=== PATIENT | male | born 1980 | race Caucasian/White ===

== ENCOUNTER → 2020-11-01 09:39 | Outpatient (BNVA) | payer SELFPAY | PROVIDERS: Visit Provider Surgery | DX: Z20.822 Contact with and (suspected) exposure to COVID-19 (principal); K80.20 Calculus of gallbladder without cholecystitis without obstruction | CPT/HCPCS: 87635 ==

== ENCOUNTER 2020-11-08 05:38 | Day surgery (SDC) | payer SELFPAY ==
[2020-11-08] VITALS (12 sets, daily range): BP systolic 121–157; BP diastolic 78–109; PULSE 60–84; RESP 12–76; TEMP 36.1–36.9; O2SAT 91–96
[2020-11-08] MEDS: sodium chloride 0.9% 1,000 ML 30 ML IV (06:30)
--- NOTE | 2020-11-08 06:37 | ANES.PREANE2 ---
Pre-Anesthetic Assessment Pre-Anesthetic Assessment: Height/Weight: Height 1.65 m Temp Pulse Resp BP Pulse Ox 98.4 F 84 18 157/109 96 11/08/20 06:18 11/08/20 06:18 11/08/20 06:18 11/08/20 06:18 11/08/20 06:18 Preop Diagnosis: Cholelithiasis Proposed Procedure: Operation Date: 11/08/20 07:00 Proposed Procedures p Laparoscopic Cholecystectomy 24490 K80.20(Not Applicable) - Richmond Sheth MD Familial anesthetic complications: none Was Beta Paresh taken within 24 hours: N/A Was Clonidine taken within 24 hours: N/A Last intake: Intake Last Liquid Date 11/07/20 Last Liquid Time 22:30 Last Solid Date 11/07/20 Last Solid Time 19:00 Social: Social History: No alcohol and No tobacco Comment: former smoker, currently vapes Exam: Pre-Anes Outpt Exam: alert, oriented x 3, clear to auscultation bilaterally and regular rate & rhythm Airway: Cervical ROM: WNL MP: 4 Dentition: False Metabolic: Metabolic: Morbid obesity Anesthetic Plan: ASA status: 2 Anesthesia: General Risk of > 500 ml blood loss (7ml/kg in children): No PFSH Anesthesia PFSH: Medical History (Updated 09/08/20 @ 10:50 by Richmond Sheth MD) Cholelithiasis GERD (gastroesophageal reflux disease) History of spleen injury Surgical History (Updated 09/08/20 @ 10:49 by Richmond Sheth MD) H/O exploratory laparotomy Family History (Updated 09/08/20 @ 10:45 by Cassidy Baxter LPN) Father Cancer CAD (coronary artery disease) Social History (Updated 09/08/20 @ 10:46 by Cassidy Baxter LPN) Smoking and tobacco status: former smoker Alcohol intake: never Marital status: Single Number of children: 4 Current occupational status: employed Data Anesthesia Cardiac Studies: No Data to Display
--- NOTE | 2020-11-08 06:56 | W.PM.OPSFHP ---
Same Day Surgery H&P Indication for Procedure/HPI DATE OF PROCEDURE: November 08, 2020 CHIEF COMPLAINT/INDICATIONFOR SURGICAL PROCEDURE: cholelithiasis/lap kosta PREOP DIAGNOSIS: Cholelithiasis PLANNED PROCEDRUE: Operation Date: 11/08/20 07:00 Proposed Procedures p Laparoscopic Cholecystectomy 57671 K80.20(Not Applicable) - Richmond Sheth MD Medications/Allergies* Home Medications Medication Instructions Recorded Confirmed Type famotidine 20 mg tablet 20 mg PO DAILY 09/08/20 11/07/20 History Allergies/Adverse Reactions Allergy/AdvReac Type Severity Reaction Status Date / Time No Known Allergies Allergy Verified 11/08/20 06:21 Pertinent History/Comorbid Conditions* Medical History (Updated 09/08/20 @ 10:50 by Richmond Sheth MD) Cholelithiasis GERD (gastroesophageal reflux disease) History of spleen injury Surgical History (Updated 09/08/20 @ 10:49 by Richmond Sheth MD) H/O exploratory laparotomy Family History (Updated 09/08/20 @ 10:45 by Cassidy Baxter LPN) CAD (coronary artery disease) Father Cancer Father Social History Smoking and tobacco status: former smoker Alcohol intake: never Marital status: Single Number of children: 4 Current occupational status: employed Pertinent Exam Findings alert, oriented x 3, regular rate & rhythm and operative site marked Recommendations Surgery/Procedure today Coding Level of Care Code Acute [employer] for Marti Rapp
--- NOTE | 2020-11-08 07:29 | PC.NURSE ---
spoke with patient's to let her know we have started the procedure. Bandar Solis
[2020-11-08] MEDS: fentaNYL 50 mcg/mL INJ 2mL IVP ×2 (09:06→09:11)
[2020-11-08] MEDS: ondansetron 2 mg/ML SDV 2 mL 4 MG IVP (09:06)
[2020-11-08] MEDS: HYDROcodone-acetaminophen 5-325 mg Tablet 1 TAB PO (11:13)
--- NOTE | 2020-11-08 18:04 | ANE.PACU2 ---
Inpatient post-anesthesia follow up: Airway intact: Yes Vital signs: Temperature 97.2 F Pulse Rate 76 Respiratory Rate 76 Blood Pressure 135/106 Pulse Oximetry 93 Oxygen Delivery Me thod Room Air Oxygen Flow Rate 8 Fraction of Inspir ed Oxygen Hydration adequate: Yes Nausea and vomiting: No Pain level: 2 Mental status: Baseline
--- NOTE | 2020-11-08 18:06 | ANE.PACU2 ---
Inpatient post-anesthesia follow up: Airway intact: Yes Vital signs: Temperature 97.2 F Pulse Rate 76 Respiratory Rate 76 Blood Pressure 135/106 Pulse Oximetry 93 Oxygen Delivery Me thod Room Air Oxygen Flow Rate 8 Fraction of Inspir ed Oxygen Hydration adequate: Yes Nausea and vomiting: No Pain level: 3 Mental status: Baseline
--- NOTE | 2020-11-09 15:02 | PM.OP ---
Operative Report Date of procedure: 11.08.2020 Pre-op Diagnosis: Symptomatic cholelithiasis Post-op Diagnosis: 1. Cholelithiasis 2. Adhesions from prior exploratory laparotomy Procedure Done: Laparoscopic cholecystectomy Specimens removed/disposition: Gallbladder Surgeon: Richmond Sheth Anesthesia: General Estimated blood loss (mL): 150 Condition: stable Disposition: PACU Procedure: The patient was taken to the operating room and was intubated under general anesthesia. After the antibiotic had been administered, the abdomen was prepped and draped in a sterile manner. Using a #15 blade, a 1 centimeter right subcostal incision is made in the midclavicular line and using an open Fermin technique the peritoneal cavity was entered. A 10 millimeter port was placed and 15 millimeters of pneumoperitoneum was created. A 10 millimeter, 30 degrees scope was then introduced. There were adhesions in the midline up to the epigastrium. Three 5 millimeter ports were placed in the epigastric, and the anterior axillary line two fingerbreadths below the costal margin on the right side and in midclavicular line just under the umbilicus under the direct visualization. Ratcheted forceps were introduced into the lateral most port and was used to retract the fundus of the gallbladder cephalad and using forceps the infundibulum of the gallbladder was retracted laterally. Using L-hook cautery the peritoneum overlying the Calot's triangle was opened medially and laterally until the cystic duct and the cystic artery were skeletonized. There was brisk bleeding during dissection of the cystic duct resulting in blood loss but it was eventually controlled with clips. Dissection was carried along the body of the gallbladder and after ensuring critical view of safety, 4 clips applied on the cystic duct and 3 clips applied on the cystic artery and cut leaving, 3 clips on the remaining portion of the duct and 2 clips on the remaining portion of the artery. The rest of the gallbladder was dissected off the liver using L-hook cautery. There was no bleeding or bile leaking noted from the gallbladder fossa and the clips appeared to be in place. An EndoCatch bag was introduced to remove the gallbladder. All the ports were removed under direct visualization and there was no bleeding noted from the port sites. The fascia of the 10 mm port site was closed using [id number] Vicryl sutures and the subcutaneous tissue was approximated using 3-0 Vicryl sutures. The skin at all four ports were closed using 4-0 Monocryl and Dermabond. A total of 10 millimeters of 0.5% Marcaine was infiltrated around the port sites. The patient was stable throughout the procedure.
== END 2020-11-08 11:35 | disposition home or self-care (01) ==
PROVIDERS: Visit Provider Surgery
PROC: 0FT44ZZ Resection of Gallbladder, Percutaneous Endoscopic Approach (ICD-10-PCS; CPT 47562; principal; 2020-11-08 07:00)
DX: K80.10 Calculus of gallbladder with chronic cholecystitis without obstruction (principal); E66.01 Morbid (severe) obesity due to excess calories; F17.290 Nicotine dependence, other tobacco product, uncomplicated; K66.0 Peritoneal adhesions (postprocedural) (postinfection)
CPT/HCPCS: 47562; 88304; J0690; J1100; J2405; J2704; J2710; J3010; J3490; J7030